=== PATIENT | female | born 1955 | race Two or more races ===

== ENCOUNTER 2023-06-22 11:13 | Inpatient (IN) | payer MEDICARE, OTHER ==
[~2023-06-22] VITALS: Ht 157.5 cm; Wt 76.7 kg
[2023-06-22 11:38] LABS: Basophils # (auto) 0 10 ^3/uL (0-0.2); Basophils % (auto) 0.7 % (0.0-2.0); Eosinophils # (auto) 0.2 10 ^3/uL (0-0.8); Eosinophils % (auto) 2.4 % (0.0-7.0); Hematocrit 41.4 % (36.0-46.0); Hemoglobin 14.1 g/dL (12.2-16.2); Lymphocytes # (auto) 2.8 10 ^3/uL (0.4-5.4); Lymphocytes % (auto) 43.9 % (10.0-50.0); Mean Corpuscular Hemoglobin 29.6 pg (28.0-32.0); Mean Corpuscular Hgb Conc. 33.9 g/dL (32.0-36.0); Mean Corpuscular Volume 87.3 fL (80.0-100.0); Monocytes # (auto) 0.6 10 ^3/uL (0-1.3); Monocytes % (auto) 9.5 % (0.0-12.0); Neutrophils # (auto) 2.8 10 ^3/uL (1.6-8.6); Neutrophils % (auto) 43.5 % (37.0-80.0); Nucleated Red Blood Cells % 0.1 %; Red Blood Cells 4.75 10^6/uL (4.0-5.20); Red Cell Distribution Width 13.3 % (11.8-14.3); White Blood Cell 6.3 10^3/uL (4.4-10.8)
[2023-06-22 11:53] LABS: Alanine Aminotransferase 30 U/L (7-40); Albumin 4.3 g/dL (3.2-4.8); Alkaline Phosphatase 101 U/L (46-116); Anion Gap 6 (5-15); Aspartate Aminotransferase 17 U/L (13-40); BUN/Creatinine Ratio 14.6 (10.0-20.0); Blood Urea Nitrogen 12 mg/dL (9-23); Calcium 9.2 mg/dL (8.7-10.4); Carbon Dioxide 27 mmol/L (20-30); Chloride 106 mmol/L (98-107); Glucose 96 mg/dL (74-106); Potassium 3.7 mmol/L (3.5-5.1); Sodium 139 mmol/L (136-145)
[2023-06-22 11:54] LABS: Bilirubin, Total 0.6 mg/dL (0.2-1.0); Total Protein 6.7 g/dL (5.7-8.2)
[2023-06-22 11:55] LABS: INR 1.02 (0.9-1.15); Partial Thromboplastin Time 27.1 SEC (24.5-34.5); Prothrombin Time 10.7 sec (9.3-11.8)
[2023-06-22] MEDS ORDERED: ASPirin 325 MG TAB PO ONE (15:45)
[2023-06-22 18:25] VITALS: PULSE 60; RESP 14; O2SAT 98
[2023-06-22] MEDS ORDERED: NITROGLYCERIN 0.4 MG SL TAB SL PRN (18:30)
[2023-06-22] MEDS ORDERED: MORPHINE SULFATE INJ 2 MG/ml SYRG IV PRN (18:30)
[2023-06-22] MEDS ORDERED: ACETAMINOPHEN 325 MG TAB PO PRN (18:30)
[2023-06-22] MEDS ORDERED: ATOR20TA50 PO (18:33)
[2023-06-22 18:49] LABS: LDL Cholesterol 100 mg/dL (< 100); Triglycerides 329 mg/dL (< 150)
[2023-06-22 18:51] LABS: Cholesterol 191 mg/dL (< 200); HDL Cholesterol 63 mg/dL (40-59)
[2023-06-22 19:15] VITALS: PULSE 73; RESP 14; O2SAT 99
[2023-06-22] MEDS: SODIUM CHLORIDE 0.9% 1,000 ML IV SCH (19:24)
[2023-06-22] MEDS: hydrALAZINE HCL 20 MG/ML VL IV PRN (20:33)
[2023-06-22] MEDS: ATORVASTATIN 20 MG TAB PO SCH (21:43)
[2023-06-22] MEDS ORDERED: METOPROLOL TARTRATE 25 MG TAB PO SCH (22:00)
[2023-06-22 22:44] VITALS: BP 147/61; PULSE 90; RESP 18; TEMP 97.7; O2SAT 96
[2023-06-22] MEDS ORDERED: MELA3TAB27 PO (22:55)
[2023-06-22] MEDS ORDERED: CALC500T30 PO (22:55)
[2023-06-22] MEDS ORDERED: MULT-1018 PO (22:56)
[2023-06-23] MEDS: hydrALAZINE HCL 20 MG/ML VL IV PRN (04:46)
[2023-06-23 05:00] VITALS: BP 162/77; PULSE 73; RESP 16; TEMP 97.8; O2SAT 97
[2023-06-23 07:15] LABS: Basophils # (auto) 0 10 ^3/uL (0-0.2); Basophils % (auto) 0.8 % (0.0-2.0); Eosinophils # (auto) 0.1 10 ^3/uL (0-0.8); Eosinophils % (auto) 2.9 % (0.0-7.0); Hematocrit 40.7 % (36.0-46.0); Lymphocytes # (auto) 1.8 10 ^3/uL (0.4-5.4); Lymphocytes % (auto) 38.8 % (10.0-50.0); Mean Corpuscular Hemoglobin 30.1 pg (28.0-32.0); Mean Corpuscular Hgb Conc. 34.4 g/dL (32.0-36.0); Mean Corpuscular Volume 87.6 fL (80.0-100.0); Monocytes # (auto) 0.4 10 ^3/uL (0-1.3); Monocytes % (auto) 9.4 % (0.0-12.0); Neutrophils # (auto) 2.2 10 ^3/uL (1.6-8.6); Neutrophils % (auto) 48.1 % (37.0-80.0); Nucleated Red Blood Cells % 0.1 %; Red Blood Cells 4.65 10^6/uL (4.0-5.20); Red Cell Distribution Width 13.3 % (11.8-14.3); White Blood Cell 4.6 10^3/uL (4.4-10.8)
[2023-06-23 07:44] LABS: Alanine Aminotransferase 24 U/L (7-40); Albumin 3.9 g/dL (3.2-4.8); Alkaline Phosphatase 73 U/L (46-116); Anion Gap 7 (5-15); Aspartate Aminotransferase 19 U/L (13-40); BUN/Creatinine Ratio 12.9 (10.0-20.0); Bilirubin, Total 0.9 mg/dL (0.2-1.0); Blood Urea Nitrogen 8 mg/dL (9-23); Calcium 8.6 mg/dL (8.5-10.1); Carbon Dioxide 26 mmol/L (20-30); Chloride 109 mmol/L (98-107); Glucose 111 mg/dL (74-106); Potassium 3.5 mmol/L (3.5-5.1); Sodium 142 mmol/L (136-145); Total Protein 6.2 g/dL (5.7-8.2)
[2023-06-23 08:00] VITALS: PULSE 90; RESP 18; O2SAT 99
[2023-06-23 09:07] VITALS: BP 137/68; PULSE 82; RESP 16; TEMP 97.9; O2SAT 99
[2023-06-23] MEDS ORDERED: ADENOSINE 64 MG in GIVE UN-DILUTED 0 ML IV STA (09:58)
[2023-06-23] MEDS: ASPirin 81 mg TAB PO SCH (10:01)
[2023-06-23 13:00] VITALS: BP 145/71; PULSE 76; RESP 16; TEMP 97.9; O2SAT 97
[2023-06-23] MEDS: SODIUM CHLORIDE 0.9% 1,000 ML IV SCH (13:49)
[2023-06-23] MEDS ORDERED: CALC500T53 PO (15:54)
[2023-06-23] MEDS ORDERED: MULT-1018 PO (15:54)
[2023-06-23] MEDS ORDERED: ATOR20TA PO (15:54)
[2023-06-23] MEDS ORDERED: MELA3TAB27 PO (15:54)
[2023-06-23 16:58] LABS: Urine Bacteria NONE SEEN /hpf (None Seen); Urine Blood Negative /uL (Negative); Urine Clarity Clear (Clear); Urine Color Colorless (Yellow); Urine Protein, UAD Negative (Negative); Urine Specific Gravity 1.007 (1.001-1.035); Urine Urobilinogen Normal (Negative); Urine WBC 3 /hpf (0 - 5); Urine pH 6.5 (5.0-8.0)
[2023-06-23 17:00] VITALS: BP 139/68; PULSE 103; RESP 16; TEMP 97.6; O2SAT 97
[2023-06-23 20:00] VITALS: PULSE 84; RESP 18; O2SAT 99
[2023-06-23] MEDS: ATORVASTATIN 20 MG TAB PO SCH (22:57)
[2023-06-24] MEDS: SODIUM CHLORIDE 0.9% 1,000 ML IV SCH (03:50)
[2023-06-24 05:00] VITALS: BP 146/74; PULSE 72; RESP 16; TEMP 97.8; O2SAT 98
[2023-06-24 06:21] LABS: Triglycerides 140 mg/dL (< 150)
[2023-06-24 06:22] LABS: LDL Cholesterol 79 mg/dL (< 100)
[2023-06-24 06:23] LABS: Cholesterol 153 mg/dL (< 200); HDL Cholesterol 57 mg/dL (40-59)
[2023-06-24 08:00] VITALS: BP 151/84; PULSE 74; RESP 16; RESP 20; TEMP 98.8; O2SAT 92; O2SAT 93
[2023-06-24 08:20] LABS: Basophils # (auto) 0 10 ^3/uL (0-0.2); Basophils % (auto) 0.8 % (0.0-2.0); Eosinophils # (auto) 0.1 10 ^3/uL (0-0.8); Eosinophils % (auto) 2.8 % (0.0-7.0); Hematocrit 39.8 % (36.0-46.0); Hemoglobin 13.2 g/dL (12.2-16.2); Lymphocytes # (auto) 1.5 10 ^3/uL (0.4-5.4); Lymphocytes % (auto) 30.7 % (10.0-50.0); Mean Corpuscular Hemoglobin 29.2 pg (28.0-32.0); Mean Corpuscular Hgb Conc. 33.3 g/dL (32.0-36.0); Mean Corpuscular Volume 87.6 fL (80.0-100.0); Monocytes # (auto) 0.6 10 ^3/uL (0-1.3); Monocytes % (auto) 12.4 % (0.0-12.0); Neutrophils # (auto) 2.6 10 ^3/uL (1.6-8.6); Neutrophils % (auto) 53.3 % (37.0-80.0); Nucleated Red Blood Cells % 0.1 %; Red Blood Cells 4.54 10^6/uL (4.0-5.20); Red Cell Distribution Width 13.7 % (11.8-14.3); White Blood Cell 4.9 10^3/uL (4.4-10.8)
[2023-06-24 08:22] LABS: Chloride 110 mmol/L (98-107); Potassium 3.5 mmol/L (3.5-5.1); Sodium 143 mmol/L (136-145)
[2023-06-24 08:23] LABS: Anion Gap 8 (5-15); Carbon Dioxide 25 mmol/L (20-30)
[2023-06-24 08:24] LABS: Calcium 8.9 mg/dL (8.5-10.1)
[2023-06-24 08:28] LABS: BUN/Creatinine Ratio 17.7 (10.0-20.0); Blood Urea Nitrogen 11 mg/dL (9-23); Glucose 102 mg/dL (74-106)
[2023-06-24] MEDS: ASPirin 81 mg TAB PO SCH (10:29)
[2023-06-24 13:00] VITALS: BP 169/78; PULSE 70; RESP 16; TEMP 98.7; O2SAT 96
[2023-06-24 13:23] VITALS: BP 162/77; PULSE 92; RESP 18; TEMP 37.1; O2SAT 96
[2023-06-24] MEDS: hydrALAZINE HCL 20 MG/ML VL IV PRN (13:43)
== END 2023-06-24 15:00 | disposition home or self-care (01) | DRG 313 ==
LOC: ER 11:13 → TELE 18:32 → TELE-EAST 21:14
PROVIDERS: ADMIT Internal Medicine; ATTEND Internal Medicine
DX: R07.89 Other chest pain (principal); I10 Essential (primary) hypertension; E78.5 Hyperlipidemia, unspecified; E66.9 Obesity, unspecified; Z68.31 Body mass index [BMI] 31.0-31.9, adult; M81.0 Age-related osteoporosis without current pathological fracture; Z91.041 Radiographic dye allergy status; Z79.899 Other long term (current) drug therapy; Z83.3 Family history of diabetes mellitus; Z90.710 Acquired absence of both cervix and uterus
CPT/HCPCS: 36415; 71045; 76705; 78452; 78582; 80048; 80053; 80061; 81001; 84484; 85025; 85379; 85610; 85730; 93005; 93017; 93306; 96361; 96374; G0378; J0153